=== PATIENT | female | born 1970 | race Caucasian/White ===

== ENCOUNTER 2021-06-13 11:15 | Outpatient (REF) | payer OTHER, SELFPAY ==
[2021-06-13 11:19] LABS: MANUAL DIFF FLAG NO
[2021-06-13 11:23] LABS: Basophils Percent Auto 0.6 % (0-2); Eosinophils Absolute Auto 0.2 X10*3/uL (0.0-0.4); Hematocrit 39.7 % (37-47); Hemoglobin 12.9 g/dl (12.0-16.0); Imm Gran Abs Auto 0.01 X10*3/uL (0.00-0.03); Imm Gran Pct Auto 0.2 % (0.0-0.4); Lymphocytes Absolute Auto 1.4 X10*3/uL (1.2-4.9); Lymphocytes Percent Auto 28.1 % (20-40); Mean Corpuscular HGB Conc 32.5 g/dl (31.0-35.0); Mean Corpuscular Hemoglobin 31.1 pg (27.0-33.0); Mean Corpuscular Volume 95.7 fL (80-98); Mean Platelet Volume 12.9 fL (9.4-12.3); Monocytes Absolute Auto 0.6 X10*3/uL (0.1-1.2); Monocytes Percent Auto 12.1 % (2-11); Neutrophils Absolute Auto 2.8 X10*3/uL (2.0-8.3); Platelet Count 231 X10*3/uL (160-400); Red Blood Count 4.15 X10*6/uL (4.20-5.50); Red Cell Distribution Width 13.2 % (11.0-16.0); White Blood Count 5.1 X10*3/uL (4.8-10.8)
[2021-06-13 11:46] LABS: Alanine Aminotransferase 10 U/L (0-31); Albumin Level 4.2 g/dL (3.5-5.0); Alkaline Phosphatase 49 U/L (39-117); Anion Gap 14 (12-20); Aspartate Amino Transferase 14 U/L (5-31); Bilirubin Total 0.5 mg/dL (0.0-1.0); Blood Urea Nitrogen 12 mg/dL (9-16); Calcium 9.2 mg/dL (8.4-10.2); Carbon Dioxide 25 mmol/L (22-29); Chloride 103 mmol/L (96-108); Cholesterol 166 mg/dL; Estimated Glomerular Filt Rate > 60; Glucose Fasting 90 mg/dL (60-99); HDL Cholesterol 70 mg/dL; LDL Cholesterol Calculated 85 mg/dl; Potassium 4.1 mmol/L (3.3-5.1); Sodium 138 mmol/L (135-145); Total Protein 6.6 g/dL (6.5-8.0); Triglycerides 55 mg/dL
[2021-06-13 12:29] LABS: Glucose Urine UA NEG (NEG); Leukocyte Esterase Urine NEG (NEG); Nitrite Urine NEG (NEG); Specific Gravity - Urine 1.025 (1.005-1.025); Urine Blood NEG (NEG); Urine Ketones NEG (NEG); Urine Protein NEG (NEG-TRACE)
[2021-06-13 12:41] LABS: Appearance Urine HAZY; Color Urine YELLOW
== END 2021-06-13 11:16 | disposition home or self-care (01) ==
LOC: HO.LNP 11:15
PROVIDERS: Visit Provider Internal Medicine
DX: Z00.00 Encounter for general adult medical examination without abnormal findings (principal); D36.9 Benign neoplasm, unspecified site; N95.1 Menopausal and female climacteric states; M19.042 Primary osteoarthritis, left hand
CPT/HCPCS: 80053; 80061; 81003; 85025

== ENCOUNTER 2022-06-15 11:05 | Outpatient (REF) | payer OTHER, SELFPAY ==
[2022-06-15 11:08] LABS: MANUAL DIFF FLAG NO
[2022-06-15 11:43] LABS: Basophils Percent Auto 0.6 % (0-2); Eosinophils Absolute Auto 0.2 X10*3/uL (0.0-0.4); Eosinophils Percent Auto 3.3 % (0-4); Hematocrit 39.3 % (37.0-47.0); Imm Gran Abs Auto 0.01 X10*3/uL (0.00-0.03); Imm Gran Pct Auto 0.2 % (0.0-0.4); Lymphocytes Absolute Auto 1.4 X10*3/uL (1.2-4.9); Lymphocytes Percent Auto 28.2 % (20-40); Mean Corpuscular HGB Conc 33.1 g/dl (31.0-35.0); Mean Corpuscular Hemoglobin 30.6 pg (27.0-33.0); Mean Corpuscular Volume 92.5 fL (80.0-98.0); Mean Platelet Volume 12.8 fL (9.4-12.3); Monocytes Absolute Auto 0.6 X10*3/uL (0.1-1.2); Monocytes Percent Auto 12.9 % (2-11); Neutrophils Absolute Auto 2.7 x10*3/uL (2.0-8.3); Neutrophils Percent Auto 54.8 % (45-73); Platelet Count 229 X10*3/uL (160-400); Red Blood Count 4.25 X10*6/uL (4.20-5.50); White Blood Count 4.9 X10*3/uL (4.8-10.8)
[2022-06-15 11:44] LABS: Appearance Urine HAZY; Color Urine YELLOW; Glucose Urine UA NEG (NEG); Leukocyte Esterase Urine NEG (NEG); Nitrite Urine NEG (NEG); Urine Blood TRACE (NEG); Urine Ketones NEG (NEG); Urine Protein NEG (NEG-TRACE)
[2022-06-15 12:04] LABS: Squamous Epithelial Cell Urine 2+ /LPF
[2022-06-15 12:05] LABS: Bacteria Urine 2+ /LPF; WBC Urine 0-2 /HPF (0-4)
[2022-06-15 12:06] LABS: RBC Urine 0-2 /HPF (0)
[2022-06-15 12:17] LABS: Alanine Aminotransferase 10 U/L (0-31); Albumin Level 4.1 g/dL (3.5-5.0); Alkaline Phosphatase 55 U/L (39-117); Anion Gap 14 (12-20); Aspartate Amino Transferase 15 U/L (5-31); Bilirubin Total 0.6 mg/dL (0.0-1.0); Blood Urea Nitrogen 11 mg/dL (9-16); Carbon Dioxide 26 mmol/L (22-29); Chloride 104 mmol/L (96-108); Cholesterol 157 mg/dL; Estimated Glomerular Filt Rate > 60; Glucose Fasting 83 mg/dL (60-99); HDL Cholesterol 61 mg/dL; LDL Cholesterol Calculated 85 mg/dl; Potassium 3.9 mmol/L (3.3-5.1); Sodium 140 mmol/L (135-145); Total Protein 6.5 g/dL (6.5-8.0); Triglycerides 56 mg/dL
== END 2022-06-15 11:06 | disposition home or self-care (01) ==
LOC: HO.LNP 11:05
PROVIDERS: Visit Provider Internal Medicine
DX: Z00.00 Encounter for general adult medical examination without abnormal findings (principal)
CPT/HCPCS: 80053; 80061; 81001; 85025

== ENCOUNTER 2023-06-21 10:58 | Outpatient (REF) | payer OTHER, SELFPAY ==
[2023-06-21 11:02] LABS: MANUAL DIFF FLAG NO
[2023-06-21 11:35] LABS: Appearance Urine Clear; Color Urine Yellow; Glucose Urine UA Negative (Negative); Leukocyte Esterase Urine Small (1+) (Negative); Nitrite Urine Negative (Negative); UMIC TRIGGER UACC YES; Urine Blood Negative (Negative); Urine Ketones Negative (Negative); Urine Protein Negative (Neg-Trace)
[2023-06-21 11:37] LABS: Bacteria Urine Trace (None Seen); Basophils Percent Auto 0.5 % (0-2); Eosinophils Absolute Auto 0.1 X10*3/uL (0.0-0.4); Eosinophils Percent Auto 3.6 % (0-4); Hematocrit 38.7 % (37.0-47.0); Hemoglobin 12.6 g/dl (12.0-16.0); Hyaline Casts Urine 0-2 /LPF (0-2); Lymphocytes Absolute Auto 1.4 X10*3/uL (1.2-4.9); Mean Corpuscular HGB Conc 32.6 g/dl (31.0-35.0); Mean Corpuscular Hemoglobin 29.6 pg (27.0-33.0); Mean Corpuscular Volume 90.8 fL (80.0-98.0); Mean Platelet Volume 12.5 fL (9.4-12.3); Monocytes Absolute Auto 0.5 X10*3/uL (0.1-1.2); Neutrophils Absolute Auto 1.9 x10*3/uL (2.0-8.3); Neutrophils Percent Auto 48.9 % (45-73); Platelet Count 200 X10*3/uL (160-400); RBC Urine 0-2 /HPF (0-2); Red Blood Count 4.26 X10*6/uL (4.20-5.50); UACC Culture Trigger YES; White Blood Count 3.9 X10*3/uL (4.8-10.8)
[2023-06-21 11:56] LABS: Alanine Aminotransferase 10 U/L (0-31); Alkaline Phosphatase 49 U/L (39-117); Anion Gap 11 (12-20); Aspartate Amino Transferase 15 U/L (5-31); Bilirubin Total 0.7 mg/dL (0.0-1.0); Blood Urea Nitrogen 10 mg/dL (9-16); Calcium 9.2 mg/dL (8.4-10.2); Carbon Dioxide 26 mmol/L (22-29); Chloride 108 mmol/L (96-108); Cholesterol 152 mg/dL; Estimated Glomerular Filt Rate > 60; Glucose Fasting 83 mg/dL (60-99); HDL Cholesterol 66 mg/dL; LDL Cholesterol Calculated 77 mg/dl; Sodium 141 mmol/L (135-145); Total Protein 6.4 g/dL (6.5-8.0); Triglycerides 48 mg/dL
== END 2023-06-21 10:59 | disposition home or self-care (01) ==
LOC: HO.LNP 10:58
PROVIDERS: Visit Provider Internal Medicine
DX: Z00.00 Encounter for general adult medical examination without abnormal findings (principal); D72.819 Decreased white blood cell count, unspecified; R82.998 Other abnormal findings in urine
CPT/HCPCS: 80053; 80061; 81001; 85025; 87086

== ENCOUNTER 2023-11-01 13:24 | Outpatient (REF) | payer OTHER, SELFPAY ==
[2023-11-01 13:39] LABS: Appearance Urine Cloudy; Color Urine Yellow; Glucose Urine UA Negative (Negative); Leukocyte Esterase Urine Large (3+) (Negative); Nitrite Urine Negative (Negative); PH 6.5 (5.0-9.0); Specific Gravity - Urine <= 1.005 (1.005-1.025); UMIC TRIGGER UA YES; Urine Blood Large (3+) (Negative); Urine Ketones Negative (Negative); Urine Protein Negative (Neg-Trace)
[2023-11-01 13:56] LABS: Bacteria Urine None Seen (None Seen); Hyaline Casts Urine 0-2 /LPF (0-2); Squamous Epithelial Cell Urine 0-2 /HPF (0-2); WBC Urine >50 /HPF (0-5)
== END 2023-11-01 13:25 | disposition home or self-care (01) ==
LOC: HO.LNP 13:24
PROVIDERS: Visit Provider Internal Medicine
DX: N39.0 Urinary tract infection, site not specified (principal)
CPT/HCPCS: 81001; 87086

== ENCOUNTER 2023-11-22 11:12 | Outpatient (REF) | payer OTHER, SELFPAY ==
[2023-11-22 11:24] LABS: Appearance Urine Hazy; Color Urine Yellow; Glucose Urine UA Negative (Negative); Leukocyte Esterase Urine Negative (Negative); Nitrite Urine Negative (Negative); Urine Blood Negative (Negative); Urine Ketones Negative (Negative); Urine Protein Negative (Neg-Trace)
[2023-11-22 13:16] LABS: Bacteria Urine Trace (None Seen); RBC Urine 0-2 /HPF (0-2); WBC Urine 0-5 /HPF (0-5)
== END 2023-11-22 11:13 | disposition home or self-care (01) ==
LOC: HO.LNP 11:12
PROVIDERS: Visit Provider Internal Medicine
DX: N39.0 Urinary tract infection, site not specified (principal)
CPT/HCPCS: 81001; 87086

== ENCOUNTER 2024-04-25 10:49 | Outpatient (REF) | payer OTHER, SELFPAY ==
[2024-04-25 12:01] LABS: Appearance Urine Clear; Color Urine Yellow; Glucose Urine UA Negative (Negative); Leukocyte Esterase Urine Trace (Negative); Nitrite Urine Negative (Negative); UMIC TRIGGER UACC YES; Urine Blood Trace (Negative); Urine Ketones Negative (Negative); Urine Protein Negative (Neg-Trace)
[2024-04-25 12:13] LABS: Bacteria Urine None Seen (None Seen); Hyaline Casts Urine 0-2 /LPF (0-2); RBC Urine 0-2 /HPF (0-2); Squamous Epithelial Cell Urine 0-2 /HPF (0-2); UACC Culture Trigger YES
== END 2024-04-25 10:50 | disposition home or self-care (01) ==
LOC: HO.LNP 10:49
PROVIDERS: Visit Provider Internal Medicine
DX: N39.0 Urinary tract infection, site not specified (principal)
CPT/HCPCS: 81001; 87086

== ENCOUNTER 2024-05-06 12:09 | Outpatient (REF) | payer BC, SELFPAY ==
[2024-05-06 12:51] LABS: Appearance Urine Clear; Color Urine Yellow; Glucose Urine UA Negative (Negative); Urine Blood Negative (Negative)
[2024-05-06 12:52] LABS: Leukocyte Esterase Urine Negative (Negative); Nitrite Urine Negative (Negative); Urine Ketones Negative (Negative); Urine Protein Negative (Neg-Trace)
[2024-05-06 12:59] LABS: Bacteria Urine None Seen (None Seen); Hyaline Casts Urine 0-2 /LPF (0-2); RBC Urine 0-2 /HPF (0-2); Squamous Epithelial Cell Urine 0-2 /HPF (0-2); WBC Urine 0-5 /HPF (0-5)
== END 2024-05-06 12:10 | disposition home or self-care (01) ==
LOC: HO.LNP 12:09
PROVIDERS: Visit Provider Internal Medicine
DX: Z51.89 Encounter for other specified aftercare (principal)
CPT/HCPCS: 81001

== ENCOUNTER 2024-06-23 10:51 | Outpatient (REF) | payer BC, SELFPAY ==
[2024-06-23 10:55] LABS: MANUAL DIFF FLAG NO
[2024-06-23 11:06] LABS: Basophils Percent Auto 0.7 % (0-2); Eosinophils Absolute Auto 0.1 X10*3/uL (0.0-0.4); Eosinophils Percent Auto 2.9 % (0-4); Hematocrit 39.8 % (37.0-47.0); Hemoglobin 13.2 g/dl (12.0-16.0); Imm Gran Abs Auto 0.01 X10*3/uL (0.00-0.03); Imm Gran Pct Auto 0.2 % (0.0-0.4); Lymphocytes Absolute Auto 1.8 X10*3/uL (1.2-4.9); Lymphocytes Percent Auto 38.8 % (20-40); Mean Corpuscular HGB Conc 33.2 g/dl (31.0-35.0); Mean Corpuscular Hemoglobin 30.6 pg (27.0-33.0); Mean Corpuscular Volume 92.3 fL (80.0-98.0); Mean Platelet Volume 12.4 fL (9.4-12.3); Monocytes Absolute Auto 0.5 X10*3/uL (0.1-1.2); Monocytes Percent Auto 11.2 % (2-11); Neutrophils Absolute Auto 2.1 x10*3/uL (2.0-8.3); Neutrophils Percent Auto 46.2 % (45-73); Platelet Count 233 X10*3/uL (160-400); Red Blood Count 4.31 X10*6/uL (4.20-5.50); Red Cell Distribution Width 13.5 % (11.0-16.0); White Blood Count 4.5 X10*3/uL (4.8-10.8)
[2024-06-23 11:29] LABS: Appearance Urine Cloudy; Color Urine Yellow; Glucose Urine UA Negative (Negative); Leukocyte Esterase Urine Small (1+) (Negative); Nitrite Urine Negative (Negative); PH 5.5 (5.0-9.0); Specific Gravity - Urine 1.025 (1.005-1.025); UMIC TRIGGER UACC YES; Urine Blood Negative (Negative); Urine Ketones Trace mg/dL (Negative); Urine Protein Negative (Neg-Trace)
[2024-06-23 11:35] LABS: Alanine Aminotransferase 13 U/L (0-31); Albumin Level 4.1 g/dL (3.5-5.0); Alkaline Phosphatase 51 U/L (39-117); Anion Gap 10 (12-20); Aspartate Amino Transferase 18 U/L (5-31); Bilirubin Total 0.7 mg/dL (0.0-1.0); Blood Urea Nitrogen 14 mg/dL (9-16); Calcium 9.4 mg/dL (8.4-10.2); Carbon Dioxide 28 mmol/L (22-29); Chloride 107 mmol/L (96-108); Cholesterol 163 mg/dL (<200); Estimated Glomerular Filt Rate > 60; Glucose Fasting 92 mg/dL (60-99); HDL Cholesterol 71 mg/dL (>40); LDL Cholesterol Calculated 81 mg/dL (<100); Potassium 3.7 mmol/L (3.3-5.1); Sodium 141 mmol/L (135-145); Total Protein 6.6 g/dL (6.5-8.0); Triglycerides 56 mg/dL (<150)
[2024-06-23 11:49] LABS: Bacteria Urine 3+ (None Seen); RBC Urine 0-2 /HPF (0-2); UACC Culture Trigger YES
== END 2024-06-23 10:52 | disposition home or self-care (01) ==
LOC: HO.LNP 10:51
PROVIDERS: Visit Provider Internal Medicine
DX: Z00.00 Encounter for general adult medical examination without abnormal findings (principal); R82.79 Other abnormal findings on microbiological examination of urine
CPT/HCPCS: 80053; 80061; 81001; 85025; 87086

== ENCOUNTER 2024-07-18 09:45 | Day surgery (SDC) | payer BC, SELFPAY ==
[2024-07-16 14:22] VITALS: BMI 17.9
[2024-07-18] MEDS: Lactated Ringers 1,000 ML 100 ML IVCONT (10:07)
[2024-07-18 10:21] VITALS: BP 132/85; PULSE 65; RESP 18; TEMP 36.6; O2SAT 100
--- NOTE | 2024-07-18 10:25 | P.CONAN_ITS ---
Documented by User: Katie Hendricks NP 07/17/24 09:13 HPI - Anesthesia Eval Consult details Narrative: 54yo F for Colonoscopy [facility] Past Medical History Medical History (Updated 07/18/24 @ 09:49 by Franchesca Patton RN) History of menopause HSV (herpes simplex virus) infection Surgical History Surgical History Hx of appendectomy H/O colonoscopy Social History Social History (Updated 07/16/24 @ 14:23 by Shu Martinez RN) Household Members: Spouse Are you a primary assistant child care teacher to a significant other at home: No Do you presently have visiting nurse or other home services: No Patient Tobacco Use Status: Never used Tobacco Have you been hit, kicked, punched, or otherwise hurt by someone within the past year? If so, by whom?: No Are you DNR?: No Advance Directives: No Advance Directives Information Provided: Yes Recently lost weight without trying: No Nutrition Risks: No Nutritional Risk Meds Allergies Allergy/AdvReac Type Severity Reaction Status Date / Time cephalexin [From KEFLEX] Allergy Intermediate RASH Verified 07/18/24 10:21 Home Medications ?Medication ?Instructions ?Recorded ?Confirmed ?Last Taken ?Type valacyclovir 500 mg tablet 500 mg PO DAILY PRN HSV outbreak 07/16/24 07/16/24 Unknown History (Valtrex) Exam Height,Weight and Vital Signs: Height 5 ft 8 in Weight 53.297 kg Assessment and Plan Assessment Anesthesia Assessment: Chart Reviewed Documented by User: Hetal Strickland DO 07/18/24 10:31 [facility] Past Medical History Medical History (Updated 07/18/24 @ 09:49 by Franchesca Patton RN) History of menopause HSV (herpes simplex virus) infection Family History Family history of problems with anesthesia: No Surgical History Surgical History Hx of appendectomy H/O colonoscopy History of Problems with Anesthesia: No Social History Social History (Updated 07/16/24 @ 14:23 by Shu Martinez RN) Household Members: Spouse Are you a primary assistant child care teacher to a significant other at home: No Do you presently have visiting nurse or other home services: No Patient Tobacco Use Status: Never used Tobacco Have you been hit, kicked, punched, or otherwise hurt by someone within the past year? If so, by whom?: No Are you DNR?: No Advance Directives: No Advance Directives Information Provided: Yes Recently lost weight without trying: No Nutrition Risks: No Nutritional Risk Meds Allergies Allergy/AdvReac Type Severity Reaction Status Date / Time cephalexin [From KEFLEX] Allergy Intermediate RASH Verified 07/18/24 10:21 Home Medications ?Medication ?Instructions ?Recorded ?Confirmed ?Last Taken ?Type valacyclovir 500 mg tablet 500 mg PO DAILY PRN HSV outbreak 07/16/24 07/16/24 Unknown History (Valtrex) Exam Exam Date and Time: 07/18/24 1027 Height,Weight and Vital Signs: Height 5 ft 8 in Weight 53.297 kg Height 5 ft 8 in Weight 53.297 kg Vital Signs Temperature 97.9 F 07/18/24 10:21 Pulse Rate 65 07/18/24 10:21 Respiratory Rate 18 07/18/24 10:21 Blood Pressure 132/85 07/18/24 10:21 Pulse Oximetry 100 07/18/24 10:21 Oxygen Delivery Method Room Air 07/18/24 10:21 Temperature 97.9 F 07/18/24 10:21 Pulse Rate 65 07/18/24 10:21 Respiratory Rate 18 07/18/24 10:21 Blood Pressure 132/85 07/18/24 10:21 Pulse Oximetry 100 07/18/24 10:21 Oxygen Delivery Method Room Air 07/18/24 10:21 Airway Mallampati Class: I TM Dist: >3cm Neck ROM: Full Loose/Missing/Broken Teeth: No (patient denies any loose or broken teeth) Heart: S1S2 Lungs: CTAB Assessment and Plan Assessment Anesthesia Assessment: Anesthesia Plan Discussed and Chart Reviewed Final Anesthetic Review Family History of Problems with Anesthesia: No History of Problems with Anesthesia: No NPO: Yes ASA Class: I Final Preanesthetic Review: No Changes in Pt Med Stat, Meds/Allgs Chart Reviewed, Consent Obtained/Reviewed and Anes Risks/Benef Reviewed Patient Risk: Low Procedure Risk: Low Anesthetic Plan Anesthetic Plan: MAC: and Agree w/ Assess. and Plan Disposition: Standard PACU
--- NOTE | 2024-07-18 10:40 | MHC.SHP ---
Pre-Procedural Eval Section A - 24 Hr Update-Section A only Date of Service: 07/18/24 Section B - Complete if H&P > 30 days Chief Complaint: screening Details of Present Illness: see H&P no changes Relevant Family History (Specify if Yes): No Relevant Social History: None Present Medications: see Short Stay Collaborative assessment Medical History: No relevant PMH History of Previous Operations: No relevant previous surgery Allergies: Allergies Allergy/AdvReac Type Severity Reaction Status Date / Time cephalexin [From KEFLEX] Allergy Intermediate RASH Verified 07/18/24 10:21 Review of Systems Sugical H&P ROS: Negative: Constitution, Cardiovascular, Respiratory, Neurological, Psychiatric, Hem-Onc, Allergic/Immunologic, Gastrointestinal, Genitourinary, Musculoskeletal, Integumentary, Endocrine and Eyes/Ears/Nose/Throat Exam Surgical H&P Exam: Normal: HEENT, Normal: Heart, Normal: Lungs, Normal: Extremities, Normal: Abdomen, Normal: Skin and Normal: Neurological Plan Diagnosis/Plan: Unchanged I have reviewed the history and physical and performed a pertinent physical examination on my patient. No changes have occurred unless specified. Time Spent With Patient Time: Total time managing care of this patient today ____ minutes.
[2024-07-18 11:22] VITALS: BP 98/66; PULSE 74; RESP 16; TEMP 36.3; O2SAT 97
[2024-07-18 11:38] VITALS: BP 127/83; PULSE 61; RESP 17; TEMP 36.3; O2SAT 100
--- NOTE | 2024-07-18 12:34 | OP_ITS ---
DATE OF SERVICE: 07/18/2024 SURGEON: Da Acevedo MD INDICATIONS: Colon cancer screening and family history of colon cancer. PREOPERATIVE DIAGNOSIS: POSTOPERATIVE DIAGNOSIS: PROCEDURE PERFORMED: Colonoscopy to the terminal ileum. ESTIMATED BLOOD LOSS: COMPLICATIONS: ANESTHESIA: Monitored anesthesia care. ASSISTANTS: SPECIMENS: DESCRIPTION OF PROCEDURE: A history and physical was performed. The risks and benefits of the procedure were explained to the patient and informed consent was obtained. The patient was placed in the left lateral decubitus position. A digital rectal exam was performed and was found to be normal. The Olympus video colonoscope was introduced into the rectum and advanced to the cecum. The cecum was identified by transillumination, palpation, and identification of ileocecal valve. Examination was performed and the scope was removed. She tolerated the procedure well and was returned to recovery area in stable condition. FINDINGS: The terminal ileum was examined and appeared normal. The visualized colonic mucosa was normal. The quality of the prep was good. No polyps were identified. Retroflexed examination was normal. IMPRESSION: Normal colonoscopy. RECOMMENDATIONS: 1. Follow up as needed. 2. Repeat colonoscopy is recommended in 5 years for family history. MD DELISA Zimmerman/ISABELA / [phone]
== END 2024-07-18 12:10 | disposition home or self-care (01) ==
PROVIDERS: PCP Internal Medicine; Visit Provider Internal Medicine Gastroenterology
PROC: 0DJD8ZZ Inspection of Lower Intestinal Tract, Via Natural or Artificial Opening Endoscopic (ICD-10-PCS; CPT 45378; principal; 2024-07-18 11:40)
DX: Z12.11 Encounter for screening for malignant neoplasm of colon (principal); Z86.010 Personal history of colon polyps; Z80.0 Family history of malignant neoplasm of digestive organs; Z79.899 Other long term (current) drug therapy
CPT/HCPCS: 45378; J2704

== ENCOUNTER 2025-03-05 10:07 | Outpatient (RCR) | payer BC, SELFPAY | END 2025-05-04 08:34 | disposition home or self-care (01) | LOC: HO.PT 10:07 | PROVIDERS: PCP Internal Medicine; Visit Provider Nurse Practitioner | DX: M54.2 Cervicalgia (principal); M77.8 Other enthesopathies, not elsewhere classified | CPT/HCPCS: 97110; 97140; 97161; 97530; 97535 ==

== ENCOUNTER 2025-07-10 07:45 | Outpatient (REF) | payer BC, SELFPAY ==
--- OUTSIDE RECORDS SUMMARY | 2024-05-29 05:02 | XMS_ITS ---
Author Organization Ben Ramires MD Address [address] [place] [phone] Care Team Providers Care Seafood Packer Name Role Phone Ben Ramires Primary Care Provider REASON FOR VISIT referral Dr. Acevedo Encounters Encounter Location Date Provider Diagnosis Ben Ramires MD [address] [place] [phone] 05/29/2024 Ben Ramires Plan Of Treatment Next Appt Details Provider Name:Ben Resendiz ier, 07/16/2025 01:00:00 PM, [address] [facility], [address] [place] [address], [phone], Progress Notes * Amelie ROJASB:1970 ([age] yo F)Acc No.[id number]:05/29/2024 Patient: Buffy Dolan :1970 A ge:54 Y S ex:Female Address:[address] [place] [address] [place] [phone] * true * Date: Generated for Printi ng/Faxing/eTransmitting on: 0 07/10/2025 12:32 PM EDT
--- OUTSIDE RECORDS SUMMARY | 2024-06-23 03:15 | XMS_ITS ---
Author Organization Ben Ramires MD Address [address] [place], [place] [phone] Care Team Providers Care Services Manager Name Role Phone Ben Ramires Primary Care Provider [phone] Results Component Value Reference Range Notes Complete Blood Count Auto Di ff Reviewed date:06/23/2024 12:55:20 PM Interpretation: Performing Lab:[facility], [address] [place] [id number] Notes/Report: White Blood Count 4.5 4.8-10.8 X10*3/uL Red Blood Count 4.31 4.20-5.50 X10*6/uL Hemoglobin 13.2 12.0-16.0 g/dl Hematocrit 39.8 37.0-47.0 % Mean Corpuscular Volume 92.3 80.0-98.0 fL Mean Corpuscular Hemoglobin 30.6 27.0-33.0 pg Mean Corpuscular HGB Conc 33.2 31.0-35.0 g/dl Red Cell Distribution Width 13.5 11.0-16.0 % Platelet Count 233 160-400 X10*3/uL Mean Platelet Volume 12.4 9.4-12.3 fL Neutrophils Percent Auto 46.2 45-73 % Imm Gran Pct Auto 0.2 0.0-0.4 % Lymphocytes Percent Auto 38.8 20-40 % Monocytes Percent Auto 11.2 2-11 % Eosinophils Percent Auto 2.9 0-4 % Basophils Percent Auto 0.7 0-2 % NRBC Pct Auto 0.0 0.0-0.2 /100WBC Neutrophils Absolute Auto 2.1 2.0-8.3 x10*3/u L Imm Gran Abs Auto 0.01 0.00-0.03 X10*3/uL Lymphocytes Absolute Auto 1.8 1.2-4.9 X10*3/u L Monocytes Absolute Auto 0.5 0.1-1.2 X10*3/uL Eosinophils Absolute Auto 0.1 0.0-0.4 X10*3/u L Basophils Absolute Auto 0.0 0.0-0.2 X10*3/uL NRBC Abs Auto 0.000 0.0-0.012 X10*3/uL Comprehensive [place]. Panel Fa Reviewed date:06/23/2024 12:56:05 PM Interpretation: Performing Lab:[address] [id number] Notes/Report: Sodium 141 135-145 mmol/L Potassium 3.7 3.3-5.1 mmol/L Chloride 107 96-108 mmol/L Carbon Dioxide 28 22-29 mmol/L Anion Gap 10 12-20 Blood Urea Nitrogen 14 9-16 mg/dL Creatinine 0.84 0.5-1.4 mg/dL Estimated Glomerular Filt Rate > 60 NOTE: For -Mosotho individuals, multiply the result by 1.210. Chronic Kidney Disease: Estimated GFR < 60 mL/min/1.73m2 Severe Kidney Disease: Estimated GFR < 15 mL/min/1.73m2 Glucose Fasting 92 60-99 mg/dL Calcium 9.4 8.4-10.2 mg/dL Bilirubin Total 0.7 0.0-1.0 mg/dL Aspartate Amino Transferase 18 5-31 U/L Alanine Aminotransferase 13 0-31 U/L Total Protein 6.6 6.5-8.0 g/dL Albumin Level 4.1 3.5-5.0 g/dL Alkaline Phosphatase 51 39-117 U/L Lipid Panel Reviewed date:06/23/2024 12:40:43 PM Interpretation: Performing Lab:[address] [id number] Notes/Report: Triglycerides 56 <150 mg/dL Desirable Triglyceride: less than 150 mg/dL Borderline High Triglyceride 150-199 mg/dL High Triglyceride: 200-499 mg/dL Very High Triglyceride: greater than or equal to 5OO mg/dL Cholesterol 163 <200 mg/dL Desirable Cholesterol: less than 200 mg/dL Borderline High Cholesterol: 200-239 mg/dL High Cholesterol: greater than 239 mg/dL LDL Cholesterol Calculated 81 <100 mg/dL Desirable LDL: less than 100 mg/dL Near Optimal/Above Optimal LDL: 110-129 mg/dL Borderline High LDL: 130-159 mg/dL High LDL: 160-189 mg/dL Very High LDL: greater than or equal to 190 mg/dL HDL Cholesterol 71 >40 mg/dL Desirable HDL: greater than 40 mg/dL Note: This HDL assay may give artificially low results in patients with liver disease. UA ClnCatch+Micro w/rflx Cul t Reviewed date:06/23/2024 12:41:00 PM Interpretation: Performing Lab:[facility], [address] [place] [phone] Notes/Report: Urine, Clean Catch Color Urine Yellow Appearance Urine Cloudy PH 5.5 5.0-9.0 Glucose Urine UA Negative Negative mg/dL Urine Blood Negative Negative Specific [place] - Urine 1.025 1.005-1.025 Urine Protein Negative Neg-Trace mg/dL Urine Ketones Trace Negative mg/dL Nitrite Urine Negative Negative Leukocyte Esterase Urine Small (1+) Negative RBC Urine 0-2 0-2 /HPF WBC Urine 6-10 0-5 /HPF Squamous Epithelial Cell Urine 11-20 0-2 /HPF Bacteria Urine 3+ None Seen Hyaline Casts Urine 6-10 0-2 /LPF REASON FOR VISIT FASTING LABS Encounters Encounter Location Date Provider Diagnosis Ben Ramires MD [address] [place] [phone] 06/23/2024 Ben Ramires Blood tests for routine general physical examination Z00.00 Assessments Encounter Date Diagnosis (ICD Code) Assessment Notes Treatment Notes Treatment Clinical Notes Section Notes 06/23/2024 Blood tests for routine general physical examination (ICD-10 - Z00.00) Plan Of Treatment Next Appt Details Provider Name:Ben zacarias, 07/16/2025 01:00:00 PM, [address], [address], [place], [place], [phone], Progress Notes * Louis ROJASaDOB:1970 ([age] yo F)Acc No.[id number]:06/23/2024 Progress Note Patient: Buffy MARIA Provider: Ximena Ramires MD :1970 A ge:54 Y S ex:Female Date:06/23/2024 Address:[address] [place], [place] [phone] Subjective: * Chief Complaints: * 1 . FASTING LABS. * Medical History: Objective: * Vitals: Assessment: * Assessment: 1. B lood tests for routine general physical examination - Z00.00 (Primary) Plan: * Treatment: * Procedure Codes: 3 6415 VENIPUNCT, ROUTINE* * * The named appointment provid er may or may not be the originator of this progress note, and it is not deemed complete until electronically signed by the appointment provider. Sign off status: Pending * Provider: Ximena Ramires MD Date: 0 06/23/2024 Generated for Isabelle hutchins/Mary/Dalilasmitting on: 0 07/10/2025 12:32 PM EDT
--- OUTSIDE RECORDS SUMMARY | 2024-07-03 04:00 | XMS_ITS ---
Author Organization Ben Ramires MD Address [address] [place], [place] [phone] Care Team Providers Care Mat Roller Name Role Phone Ben Ramires Primary Care Provider Allergies Allergen (clinical drug ingredient) Drug/Non Drug Allergy documented on EMR Reaction Allergy Type Onset Date Status Keflex rash Drug Allergy Active REASON FOR VISIT ANNUAL EXAM Medications Medication SIG (Take, Route, Fr equency, Duration) Notes Start Date End Date Status Valtrex 500 MG 1 tablet Orally Once a day for 10 day(s) Not-Taking Social History Tobacco Use: Social History Observation Description Date Details (start date - stop date) Never Smoker NA - NA Tobacco Use/Smoking Question Answer Notes Patient is a nonsmoker Additional Findings: Tobacco Non-User Cu rrent non-smoker, currently using no form of tobacco Alcohol Screen Question Answer Notes Did you have a drink contain ing alcohol in the past year? Yes How often did you have a dri nk containing alcohol in the past year? 2 to 4 times a month (2 points) How many drinks did you have on a typical day when you were drinking in the past year? 1 or 2 drinks (0 point) How often did you have 6 or more drinks on one occasion in the past year? Never (0 point) Points 2 Interpretation Negative Vital Signs Blood pressure systolic 92 mm Hg 07/03/20 24 Blood pressure diastolic 60 mm Hg 024 Height 68 in 07/03/2024 Weight 119 lbs 07/03/2024 BMI 18.09 kg/m2 07/03/2024 Encounters Encounter Location Date Provider Diagnosis Ben Ramires MD [address] [place], [place] [phone] 07/03/2024 Ben Ramires Annual physical exam Z00.00 and Dysfunction of right rotator cuff M67.911 Assessments Encounter Date Diagnosis (ICD Code) Assessment Notes Treatment Notes Treatment Clinical Notes Section Notes 07/03/2024 Annual physical exam (ICD-10 - Z00.00) encouraged her to continiue her healthy lifestyle 07/03/2024 Dysfunction of right rotator cuff (ICD-10 - M67.911) i have explained the cause of the dysfunction and have shown her the exercises to help alleviate this problem Plan Of Treatment Treatment Notes Assessment Notes Annual physical exam encouraged her to c ontiniue her healthy lifestyle Dysfunction of right rotator cuff i have explained the cause of the dysfunction and have shown her the exercises to help alleviate this problem Next Appt Details Provider Name:Ben Resendiz ier, 07/16/2025 01:00:00 PM, [address], [address], [place], [place], [phone], Progress Notes * Louis ROJASaDOB:1970 ([age] yo F)Acc No.[id number]:07/03/2024 Progress Notes Patient: Buffy Dolan Provider: Ximena Ramires MD :1970 A ge:54 Y S ex:Female Date:07/03/2024 Address:[address] [place], [place] [phone] Subjective: * Chief Complaints: * A NNUAL EXAM * HPI: D epression Screening: PHQ-9 L ittle interest or pleasure in doing things N ot at all, F eeling down, depressed, or hopeless N ot at all, T rouble falling or staying asleep, or sleeping too much N ot at all, F eeling tired or having little energy N ot at all, P oor appetite or overeating N ot at all, F eeling bad about yourself or that you are a failure, or have let yourself or your family down N ot at all, T rouble concentrating on things, such as reading the newspaper or watching television N ot at all, M oving or speaking so slowly that other people could have noticed; or the opposite, being so fidgety or restless that you have been moving around a lot more than usual N ot at all, T houghts that you would be better off or of hurting yourself in some way N ot at all, T otal Score 0 . I nterpretation and Intervention D epression Screening Findings N egative, F ollow-Up for Depression : review of PHQ-9 found negative result, no follow-up needed. C ommunication Needs: Communication Needs D oes the patient have a hearing impairment N o, D oes the patient have a vision impairment? Y es, I f yes, what is the vision impairment? C ontact Lenses, D oes the patient have a cognition impairment? N o. S JUAN [place]ANCIS[place] Questions: SDOH Questions I n the past year have you been worried about losing housing? N o, I n the past year have you or any family members you live with been unable to get any of the following when it was really needed? Check all that apply: N one. S ymptom(s): patient is a 54 yo female here for annual visit with review of recent labs and follow up of chronic issues. * ROS: G eneral/Constitutional: Change in appetite d enies. C hills d enies. F ever d enies. O phthalmologic: Blurred vision d enies. D ischarge d enies. P ain d enies. E NT: Decreased hearing d enies. S ore throat d enies.?Swollen glands d enies. E ndocrine: Cold intolerance d enies. E xcessive thirst d enies. H eat intolerance d enies. W eight loss d enies. R espiratory: Cough d enies. S hortness of breath at rest d enies. S hortness of breath with exertion d enies. W heezing d enies. C ardiovascular: Chest pain at rest d enies. C hest pain with exertion?denies. I rregular heartbeat d enies. S hortness of breath d enies. ? G astrointestinal: Abdominal pain d enies. C hange in bowel habits d enies. D iarrhea d enies. N ausea d enies. R ectal bleeding d enies. V omiting d enies . G enitourinary: Blood in urine d enies. D ifficulty urinating d enies. F requent urination d enies. U rinary incontinence D enies. M usculoskeletal: Patient complaining of s houlder is bothers. P ainful joints d enies. W eakness d enies. S kin: Dry skin d enies. I tching d enies. D enies?Mole(s), changes in moles, new moles or any lesions of concern. D enies P hotosensitivity. R chio d enies. N eurologic: Dizziness d enies. F ainting d enies. H eadache?denies. * Medical History: * Surgical History: * Hospitalization/Major Diagno stic Procedure: * Family History: F ather: alive 79 yrs, colon cancer, diagnosed with Hypertension, Cancer. M other: alive 76 yrs, diagnosed with Hypertension. 1 brother(s) . 1 son(s) . . Father colon, Denies mental health/substance abuse family history, Denies mental health/substance abuse family history, Denies mental health/substance abuse family history, Denies mental health/substance abuse family history, Denies mental health/substance abuse family history. * Social History: T obacco Use: T obacco Use/Smoking P atient is a n onsmoker, A dditional Findings: Tobacco Non-User C urrent non-smoker, currently using no form of tobacco. D rugs/Alcohol: A lcohol Screen D id you have a drink containing alcohol in the past year? Y es, H ow often did you have a drink containing alcohol in the past year? 2 to 4 times a month (2 points), H ow many drinks did you have on a typical day when you were drinking in the past year? 1 or 2 drinks (0 point), H ow often did you have 6 or more drinks on one occasion in the past year? N ever (0 point), P oints 2 , I nterpretation N egative. M iscellaneous: n o Caffeine, no. Children: yes, yes. Community involvements: yes, yes. Exercise: yes, daily with teaching dance and yoga. Home smoke detector use: yes. Living with: spouse, family. Marital status: . Occupation: works full-time. Pets: cat x1. Travel outside of the [place]: yes. * Medications: N ot-Taking/PRNValtrex 500 MG Tablet 1 tablet Orally Once a dayMedication List reviewed and reconciled with the patientNot-Taking/PRN Valtrex 500 MG Tablet 1 tablet Orally Once a dayMedication List reviewed and reconciled with the patient * Allergies: K eflex: rashyes[Allergies Verified] Objective: * Vitals: H t: 68, Wt:119, BMI:18.09, BP:92/60. * P ast Orders: L ab:Lipid Panel (Order Date - 06/23/2024) (Collection Date - 06/23/2024) Value Reference Range Triglycerides 56 <150 - mg/dL Cholesterol 163 <200 - mg/dL LDL Cholesterol Calculated 81 <100 - mg/dL HDL Cholesterol 71 >40 - mg/dL L ab:UA ClnCatch+Micro w/rflx Cult (Order Date - 06/23/2024) (Collection Date - 06/23/2024) Value Reference Range Color Urine Yellow - Appearance Urine Cloudy - PH 5.5 5.0-9.0 - Glucose Urine UA Negative Negative - mg/dL Urine Blood Negative Negative - Specific [place] - Urine 1.025 1.005-1.025 - Urine Protein Negative Neg-Trace - mg/dL Urine Ketones Trace Negative - mg/dL Nitrite Urine Negative Negative - Leukocyte Esterase Urine Small (1+) A Negative - RBC Urine 0-2 0-2 - /HPF WBC Urine 6-10 A 0-5 - /HPF Squamous Epithelial Cell Urine 11-20 0-2 - /HPF Bacteria Urine 3+ None Seen - Hyaline Casts Urine 6-10 0-2 - /LPF L ab:Urine Culture (Order Date - 06/23/2024) (Collection Date - 06/23/2024) Value Reference Range Urine Culture 50,000 to 100,000 cfu/mL - O:LACSPP Lactobacillus species - L ab:Complete Blood Count Auto Diff (Order Date - 06/23/2024) (Collection Date - 06/23/2024) Value Reference Range White Blood Count 4.5 L 4.8-10.8 - X10*3/uL Red Blood Count 4.31 4.20-5.50 - X10*6/uL Hemoglobin 13.2 12.0-16.0 - g/dl Hematocrit 39.8 37.0-47.0 - % Mean Corpuscular Volume 92.3 80.0-98.0 - fL Mean Corpuscular Hemoglobin 30.6 27.0-33.0 - pg Mean Corpuscular HGB Conc 33.2 31.0-35.0 - g/ dl Red Cell Distribution Width 13.5 11.0-16.0 - % Platelet Count 233 160-400 - X10*3/uL Mean Platelet Volume 12.4 H 9.4-12.3 - fL Neutrophils Percent Auto 46.2 45-73 - % Imm Gran Pct Auto 0.2 0.0-0.4 - % Lymphocytes Percent Auto 38.8 20-40 - % Monocytes Percent Auto 11.2 H 2-11 - % Eosinophils Percent Auto 2.9 0-4 - % Basophils Percent Auto 0.7 0-2 - % NRBC Pct Auto 0.0 0.0-0.2 - /100WBC Neutrophils Absolute Auto 2.1 2.0-8.3 - x10* 3/uL Imm Gran Abs Auto 0.01 0.00-0.03 - X10*3/uL Lymphocytes Absolute Auto 1.8 1.2-4.9 - X10* 3/uL Monocytes Absolute Auto 0.5 0.1-1.2 - X10*3/ uL Eosinophils Absolute Auto 0.1 0.0-0.4 - X10* 3/uL Basophils Absolute Auto 0.0 0.0-0.2 - X10*3/ uL NRBC Abs Auto 0.000 0.0-0.012 - X10*3/uL L ab:Comprehensive [place]. Panel Fast (Order Date - 06/23/2024) (Collection Date - 06/23/2024) Value Reference Range Sodium 141 135-145 - mmol/L Bilirubin Total 0.7 0.0-1.0 - mg/dL Aspartate Amino Transferase 18 5-31 - U/L Alanine Aminotransferase 13 0-31 - U/L Total Protein 6.6 6.5-8.0 - g/dL Albumin Level 4.1 3.5-5.0 - g/dL Alkaline Phosphatase 51 39-117 - U/L Potassium 3.7 3.3-5.1 - mmol/L Chloride 107 96-108 - mmol/L Carbon Dioxide 28 22-29 - mmol/L Anion Gap 10 L 12-20 - Blood Urea Nitrogen 14 9-16 - mg/dL Creatinine 0.84 0.5-1.4 - mg/dL Estimated Glomerular Filt Rate > 60 - Glucose Fasting 92 60-99 - mg/dL Calcium 9.4 8.4-10.2 - mg/dL * Examination: G eneral Examination: GENERAL APPEARANCE: w ell developed, well nourished, in no acute distress. HEAD: n ormocephalic, atraumatic. EYES: p upils equal, round, reactive to light and accommodation, sclera non-icteric. EARS: n ormal. ORAL CAVITY: m ucosa moist. THROAT: c lear. NECK/THYROID: n edmund supple, full range of motion, no cervical lymphadenopathy, no bruits. SKIN: w arm and dry, no suspicious lesions. HEART: r egular rate and rhythm, S1, S2 normal, no murmurs.? LUNGS: c lear to auscultation bilaterally. BREASTS: N o mass, no lump. ABDOMEN: s oft, nontender, nondistended, bowel sounds present, normal, no organomegaly , no masses palpable. RECTAL EXAM: d one by ground water technician. FEMALE GENITOURINARY: d one by ground water technician. EXTREMITIES: n o clubbing, cyanosis, or edema. NEUROLOGIC: n onfocal, motor strength normal upper and lower extremities, sensory exam intact. Assessment: * Assessment: 1. A nnual physical exam - Z00.00 (Primary) 2 . D ysfunction of right rotator cuff - M67.911 Plan: * Treatment: 2. D ysfunction of right rotator cuff Notes: i have explained the cause of the dysfunction and have shown her the exercises to help alleviate this problem. * Procedure Codes: * Preventive Medicine: Counseling: C are goal follow-up plan: C ounseling for abnormal BMI provided?Yes, B elow Normal BMI Follow-up a dvised to increase dietary intake. * * Sign off status: Completed true * Provider: Ximena Ramires MD Date: 0 07/03/2024 Generated for Isabelle hutchins/Mary/Carlositting on: 0 07/10/2025 12:31 PM EDT History and Physical Notes * HPI (History of Present Illness) Category Sub-Category Detail Notes Category Not es Symptom(s) patient is a 54 yo female here for annual visit with review of recent labs and follow up of chronic issues. Depression Screening PHQ-9 Little inte rest or pleasure in doing things: Not at all Feeling down, depressed, or hopeless: No t at all Trouble falling or staying asleep, or sl eeping too much: Not at all Feeling tired or having little energy: N ot at all Poor appetite or overeating: Not at all Feeling bad about yourself o r that you are a failure, or have let yourself or your family down: Not at all Trouble concentrating on thi ngs, such as reading the newspaper or watching television: Not at all Moving or speaking so slowly that other people could have noticed; or the opposite, being so fidgety or restless that you have been moving around a lot more than usual: Not at all Thoughts that you would be b annette off or of hurting yourself in some way: Not at all Total Score: 0 Interpretation and Intervention Depression Jeff jensen Findings: Negative Follow-Up for Depression: : review of PH Q-9 found negative result, no follow-up needed SDOH Questions SDOH Questions In the past year have you been worried about losing housing?: No In the past year have you or any family members you live with been unable to get any of the following when it was really needed? Check all that apply:: None Communication Needs Communication Needs Does the patient have a hearing impairment: No Does the patient have a vision impairmen t?: Yes If yes, what is the vision impairment?: Contact Lenses Does the patient have a cognition impair ment?: No Examination Category Sub-Category Detail Notes Category Not es General Examination GENERAL APPEARANCE: well dev eloped, well nourished, in no acute distress HEAD: normocephalic, atrau matic EYES: pupils equal, round, reactive to light and accommodation, sclera non-icteric EARS: normal THROAT: clear NECK/THYROID: neck supple, full ra nge of motion, no cervical lymphadenopathy, no bruits HEART: regular rate and rhy thm, S1, S2 normal, no murmurs LUNGS: clear to auscultatio n bilaterally ABDOMEN: soft, nontender, non distended, bowel sounds present, normal, no organomegaly , no masses palpable NEUROLOGIC: nonfocal, motor stre ngth normal upper and lower extremities, sensory exam intact SKIN: warm and dry, no alison picious lesions EXTREMITIES: no clubbing, cyanosi s, or edema BREASTS: No mass, no lump RECTAL EXAM: done by ground water technician FEMALE GENITOURINARY: done by ground water technician ORAL CAVITY: mucosa moist
--- OUTSIDE RECORDS SUMMARY | 2024-07-18 07:40 | XMS_ITS ---
Author Organization [facility] Address [address] [place] [phone] Care Team Providers Care Refining Engineer Name Role Phone Ben Ramires MD Primary Care Provider Da Luke Jr REASON FOR VISIT screening Encounters Encounter Location Date Provider Diagnosis [facility] [address] [place] [phone] 07/18/2024 Da Acevedo Jr Colon cancer screening Z12.11 and Family history of colon cancer Z80.0 Assessments Encounter Date Diagnosis (ICD Code) Assessment Notes Treatment Notes Treatment Clinical Notes Section Notes 07/18/2024 Colon cancer screening (ICD-10 - Z12.11) 07/18/2024 Family history of colon cancer (ICD-10 - Z80.0) Plan Of Treatment No Information Progress Notes * CASSIE MOTLEY DDOB:1970 (55 yo F)Acc No.[id number]:07/18/2024 COLON WITH MAC Patient: Faith CASSIE CORBIN Provider: Nava Acevedo MD :1970 A ge:54 Y S ex:Female Date:07/18/2024 Address:[address] [place], [place] [phone] Pcp:Ben Ramires MD Subjective: * Chief Complaints: * 1 . Screening. * Medical History: Objective: * Vitals: Assessment: * Assessment: 1. C olon cancer screening - Z12.11 (Primary) 2 . F amily history of colon cancer - Z80.0 Plan: * Treatment: * Procedure Codes: 4 5378 DIAGNOSTIC COLONOSCOPY * * The named appointment provid er may or may not be the originator of this progress note, and it is not deemed complete until electronically signed by the appointment provider. Sign off status: Pending * Provider: Nava Acevedo MD Date: 0 07/18/2024 Generated for Isabelle hutchins/Mary/Carlositting on: 0 07/10/2025 12:31 PM EDT
--- OUTSIDE RECORDS SUMMARY | 2024-07-24 04:00 | XMS_ITS ---
Author Organization Ben Ramires MD Address [address] [facility] [address] [place] [phone] Care Team Providers Care Tobacco Prevention Health Educator Name Role Phone Ben Ramires Primary Care Provider [phone] REASON FOR VISIT Flu Vac Immunizations Vaccine Route Administration Date Status Comme nts Fluarix Quadrivalent - 150 IM Intramuscular 07/24/2024 Adm inistered Encounters Encounter Location Date Provider Diagnosis Ben Ramires MD [address] [place] [address] [place] [phone] 07/24/2024 Ben Ramires Encounter for immunization Z23 Assessments Encounter Date Diagnosis (ICD Code) Assessment Notes Treatment Notes Treatment Clinical Notes Section Notes 07/24/2024 Encounter for immunization (ICD-10 - Z23) Plan Of Treatment Next Appt Details Provider Name:Ben Resendiz ier, 07/16/2025 01:00:00 PM, [address] [place] [address], Suite [facility], [place], [place], [phone], Progress Notes * Amelie ROJASB:1970 ([age] yo F)Acc No.[id number]:07/24/2024 Progress Note Patient: Buffy MARIA Provider: Ximena Ramires MD :1970 A ge:54 Y S ex:Female Date:07/24/2024 Address:[address] [place], [place] [id number] Subjective: * Chief Complaints: * 1 . Flu Vac. * Medical History: Objective: * Vitals: Assessment: * Assessment: 1. E ncounter for immunization - Z23 (Primary) Plan: * Treatment: * Immunizations: Fluarix Quadrivalent - 150 : 0.5 mL (Dose No:1) (Route: Intramuscular) given by Soha Padilla , Office Staff on Left Deltoid * Procedure Codes: 9 0686 FLU VAC NO PRSV 4 PATI 3 YRS+, [address]9514 IMMUNIZATION ADMIN * * The named appointment provid er may or may not be the originator of this progress note, and it is not deemed complete until electronically signed by the appointment provider. Sign off status: Pending * Provider: Ximena Ramires MD Date: 0 07/24/2024 Generated for Isabelle hutchins/Mary/Carlositting on: 0 07/10/2025 12:32 PM EDT
--- OUTSIDE RECORDS SUMMARY | 2025-07-10 04:15 | XMS_ITS ---
Author Organization Ben Ramires MD Address [address] [place], [place] [id number] Care Team Providers Care Reset Merchandiser Name Role Phone Ben Ramires Primary Care Provider Results Component Value Reference Range Notes Complete Blood Count Auto Di ff (Not yet reviewed by provider) Interpretation: Performing Lab:[facility], [address] [place] [phone] Notes/Report: White Blood Count 5.0 4.8-10.8 X10*3/uL Red Blood Count 4.19 4.20-5.50 X10*6/uL Hemoglobin 12.6 12.0-16.0 g/dl Hematocrit 39.1 37.0-47.0 % Mean Corpuscular Volume 93.3 80.0-98.0 fL Mean Corpuscular Hemoglobin 30.1 27.0-33.0 pg Mean Corpuscular HGB Conc 32.2 31.0-35.0 g/dl Red Cell Distribution Width 13.4 11.0-16.0 % Platelet Count 203 160-400 X10*3/uL Mean Platelet Volume 12.6 9.4-12.3 fL Neutrophils Percent Auto 42.1 45-73 % Imm Gran Pct Auto 0.2 0.0-0.4 % Lymphocytes Percent Auto 42.2 20-40 % Monocytes Percent Auto 11.1 2-11 % Eosinophils Percent Auto 3.4 0-4 % Basophils Percent Auto 1.0 0-2 % NRBC Pct Auto 0.0 0.0-0.2 /100WBC Neutrophils Absolute Auto 2.1 2.0-8.3 x10*3/u L Imm Gran Abs Auto 0.01 0.00-0.03 X10*3/uL Lymphocytes Absolute Auto 2.1 1.2-4.9 X10*3/u L Monocytes Absolute Auto 0.6 0.1-1.2 X10*3/uL Eosinophils Absolute Auto 0.2 0.0-0.4 X10*3/u L Basophils Absolute Auto 0.1 0.0-0.2 X10*3/uL NRBC Abs Auto 0.000 0.0-0.012 X10*3/uL Comprehensive [place]. Panel Fa (Not yet reviewed by provider) Interpretation: Performing Lab:[facility], [address] [place] [phone] Notes/Report: Sodium 141 135-145 mmol/L Potassium 3.6 3.3-5.1 mmol/L Chloride 106 96-108 mmol/L Carbon Dioxide 28 22-29 mmol/L Anion Gap 11 12-20 Blood Urea Nitrogen 12 9-16 mg/dL Creatinine 0.82 0.5-1.4 mg/dL Estimated Glomerular Filt Rate > 60 Chronic Kidney Disease: Estimated GFR < 60 mL/min/1.73m2 Severe Kidney Disease: Estimated GFR < 15 mL/min/1.73m2 Glucose Fasting 81 60-99 mg/dL Calcium 8.7 8.4-10.2 mg/dL Bilirubin Total 0.6 0.0-1.0 mg/dL Aspartate Amino Transferase 24 5-31 U/L Alanine Aminotransferase 13 0-31 U/L Total Protein 6.6 6.5-8.0 g/dL Albumin Level 4.2 3.5-5.0 g/dL Alkaline Phosphatase 54 39-117 U/L Lipid Panel (Not yet reviewe d by provider) Interpretation: Performing Lab:[facility], [address] [place] [phone] Notes/Report: Triglycerides 49 <150 mg/dL Desirable Triglyceride: less than 150 mg/dL Borderline High Triglyceride 150-199 mg/dL High Triglyceride: 200-499 mg/dL Very High Triglyceride: greater than or equal to 5OO mg/dL Cholesterol 163 <200 mg/dL Desirable Cholesterol: less than 200 mg/dL Borderline High Cholesterol: 200-239 mg/dL High Cholesterol: greater than 239 mg/dL LDL Cholesterol Calculated 83 <100 mg/dL Desirable LDL: less than 100 mg/dL Near Optimal/Above Optimal LDL: 110-129 mg/dL Borderline High LDL: 130-159 mg/dL High LDL: 160-189 mg/dL Very High LDL: greater than or equal to 190 mg/dL HDL Cholesterol 71 >40 mg/dL Desirable HDL: greater than 40 mg/dL Note: This HDL assay may give artificially low results in patients with liver disease. UA ClnCatch+Micro w/rflx Cul t (Not yet reviewed by provider) Interpretation: Performing Lab:[facility], [address] [place] [phone] Notes/Report: Urine, Clean Catch Color Urine Yellow Appearance Urine Clear PH 7.0 5.0-9.0 Glucose Urine UA Negative Negative mg/dL Urine Blood Negative Negative Specific [place] - Urine 1.015 1.005-1.025 Urine Protein Negative Neg-Trace mg/dL Urine Ketones Negative Negative mg/dL Nitrite Urine Negative Negative Leukocyte Esterase Urine Negative Negative RBC Urine 0-2 0-2 /HPF WBC Urine 0-5 0-5 /HPF Squamous Epithelial Cell Urine 3-5 0-2 /HPF Bacteria Urine None Seen None Seen Hyaline Casts Urine 0-2 0-2 /LPF REASON FOR VISIT FASTING LABS Immunizations Vaccine Route Administration Date Status Comme nts Fluarix Quadrivalent - 150 IM Intramuscular 07/10/2025 Adm inistered Encounters Encounter Location Date Provider Diagnosis Ben Ramires MD [address] [place] [address] Drive [address] [place], [place] [phone] 07/10/2025 Ben Ramires Blood tests for routine general physical examination Z00.00 and Encounter for administration of vaccine Z23 Assessments Encounter Date Diagnosis (ICD Code) Assessment Notes Treatment Notes Treatment Clinical Notes Section Notes 07/10/2025 Blood tests for routine general physical examination (ICD-10 - Z00.00) 07/10/2025 Encounter for administration of vaccine (ICD-10 - Z23) Plan Of Treatment Pending Test Test Name Order Date Complete Blood Count Auto Diff 5 Comprehensive [place]. Panel Fast 5 Lipid Panel 07/10/2025 UA ClnCatch+Micro w/rflx Cult 07/10/2025 Next Appt Details Provider Name:Ben Resendiz ier, 07/16/2025 01:00:00 PM, [address] [facility], [address], [place], [place], [phone], Progress Notes * Louis ROJASaDOB:1970 ([age] yo F)Acc No.[id number]:07/10/2025 Progress Note Patient: Buffy MARIA Provider: Ximena Ramires MD :1970 A ge:55 Y S ex:Female Date:07/10/2025 Address:[address] [place], [place] [phone] Subjective: * Chief Complaints: * 1 . FASTING LABS. * Medical History: Objective: * Vitals: Assessment: * Assessment: 1. B lood tests for routine general physical examination - Z00.00 (Primary) 2 .?Encounter for administration of vaccine - Z23 Plan: * Treatment: * Immunizations: Fluarix Quadrivalent - 150 : 0.5 mL (Dose No:1) (Route: Intramuscular) given by Soha Padilla , Office Staff on Left Deltoid * Procedure Codes: 3 6415 VENIPUNCT, ROUTINE*, 45065 FLU VACCINE NO PRESERV 3 & >, 01495 IMMUNIZATION ADMIN * * The named appointment provid er may or may not be the originator of this progress note, and it is not deemed complete until electronically signed by the appointment provider. Sign off status: Pending * Provider: Ximena Ramires MD Date: 0 07/10/2025 Generated for Isabelle hutchins/Mary/eTransmitting on: 0 07/10/2025 12:32 PM EDT
[2025-07-10 11:43] LABS: MANUAL DIFF FLAG NO
[2025-07-10 11:48] LABS: Appearance Urine Clear; Glucose Urine UA Negative (Negative); PH 7.0 (5.0-9.0); Specific Gravity - Urine 1.015 (1.005-1.025)
[2025-07-10 11:52] LABS: Hematocrit 39.1 % (37.0-47.0); Hemoglobin 12.6 g/dl (12.0-16.0); Imm Gran Abs Auto 0.01 X10*3/uL (0.00-0.03); Imm Gran Pct Auto 0.2 % (0.0-0.4); Lymphocytes Absolute Auto 2.1 X10*3/uL (1.2-4.9); Mean Corpuscular HGB Conc 32.2 g/dl (31.0-35.0); Mean Corpuscular Hemoglobin 30.1 pg (27.0-33.0); Mean Corpuscular Volume 93.3 fL (80.0-98.0); NRBC Abs Auto 0.000 X10*3/uL (0.0-0.012); NRBC Pct Auto 0.0 /100WBC (0.0-0.2); Platelet Count 203 X10*3/uL (160-400); Red Blood Count 4.19 X10*6/uL (4.20-5.50); White Blood Count 5.0 X10*3/uL (4.8-10.8)
[2025-07-10 12:02] LABS: Alanine Aminotransferase 13 U/L (0-31); Albumin Level 4.2 g/dL (3.5-5.0); Alkaline Phosphatase 54 U/L (39-117); Anion Gap 11 (12-20); Aspartate Amino Transferase 24 U/L (5-31); Blood Urea Nitrogen 12 mg/dL (9-16); Calcium 8.7 mg/dL (8.4-10.2); Carbon Dioxide 28 mmol/L (22-29); Chloride 106 mmol/L (96-108); Cholesterol 163 mg/dL (<200); Estimated Glomerular Filt Rate > 60; HDL Cholesterol 71 mg/dL (>40); Potassium 3.6 mmol/L (3.3-5.1); Sodium 141 mmol/L (135-145); Total Protein 6.6 g/dL (6.5-8.0); Triglycerides 49 mg/dL (<150)
--- OUTSIDE RECORDS SUMMARY | 2025-07-10 12:32 | XMS_ITS | Clinical Summary ---
Author Organization [employer] [facility] Address [address] [place] [address] [address] [place] [address] Care Team Providers Care Warp Knitting Machine Operator Name Role Phone Unavailable Primary Care Provider Unavailabl e Allergies Active Allergy Reactions Criticality Noted Date Comments Cephalexin Rash Low 06/09/2013 Medications acetaminophen (Tylenol) 500 MG tablet Take 1 tablet (500 mg) by mouth every 6 (six) hours if needed for mild pain. 30 tablet Active Additional Information Patient not taking.Reported on 03/12/2025 ibuprofen 400 MG tablet Take 1 tablet (400 mg) by mouth every 6 (six) hours if needed for moderate pain. 30 tablet Active Additional Information Patient not taking.Reported on 03/12/2025 Active Problems Problem Noted Date Diagnosed Date Chronic dental pain 02/03/2025 Gingival recession, localized 01/31/2024 Dental calculus 01/23/2023 Social History Tobacco Use Types Packs/Day Years Used Date Smoking Tobacco: Never Passive Smoke Exposure: Never Smokeless Tobacco: Never Tobacco Cessation:Counseling Given: Not Answered Alcohol Use Standard Drinks/Week Comments Defer 0 (1 standard drink = 0.6 oz pur e alcohol) Comments Unknown Sex and Gender Information Value Date Recorded Sex Assigned at Female 09/04/2022 10:23 AM EDT Legal Sex Female 10:23 AM EDT Gender Identity Female 09/04/2022 10:23 AM EDT Sexual Orientation Straight 09/04/2022 10 :23 AM EDT Last Filed Vital Signs Vital Sign Reading Time Taken Comments Blood Pressure 100/64 03/12/2025 9:21 AM EDT Pulse 62 03/12/2025 9:21 AM EDT Temperature - - Respiratory Rate - - Oxygen Saturation - - Inhaled Oxygen Concentration - - Weight - - Height - - Body Mass Index - - Plan of Treatment Upcoming Encounters Date Type Department Care Team (Late st Contact Info) Description 08/11/2025 1:00 PM EDT Office Visit [facility] [address] [place] [address] Ora Webster [address] [place] [address] Health Maintenance Due Date Last Done Comments CT Colonography 1970 Colonoscopy 1971 Colorectal Cancer Screening 1971 Depression Screening 1970 FIT DNA/Cologuard 1971 FIT 1970 FOBT 1970 HIV Screening 1971 SDOH Screening 1971 Sigmoidoscopy 1971 Disability Screening 1971 Alcohol/Substance Use Screening 1983 Hepatitis C Screening 1989 DTaP/Tdap/Td Vaccines (1 - Tdap) 1990 Hepatitis B Vaccines (1 of 3 - 19+ 3-dose series) 1990 Pap Smear 1992 Cervical Cancer Screening 2001 HPV/Cotest 2001 Mammogram 2011 Pneumococcal Vaccine: 50+ Years (1 of 1 - PCV) 2021 Zoster Vaccines (1 of 2) 2021 COVID-19 Vaccine (1 - 2023-2 5 season) 2025 Influenza Vaccine (#1) 2025 Dental Oral Exam 08/07/2025 02/04/2025, 01/23/2023 Dental Prophylaxis 08/07/2025 02/04/2025, 01/23/2023 Dental X-Ray: Bitewings 02/05/2026 02/05/20 25, 01/23/2023 Tobacco Screening 03/12/2026 03/12/2025 Dental X-Ray: Full Mouth 02/05/2028 02/03/2025 RSV Patients and Patients Aged 60 years or older (1 - 1-dose 75+ series) 2046 HIB Vaccines Aged Out No longer eligi ble based on patient's age to complete this topic HPV Vaccines Aged Out No longer eligi ble based on patient's age to complete this topic Hepatitis A Vaccines Aged Out No long er eligible based on patient's age to complete this topic IPV Vaccines Aged Out No longer eligi ble based on patient's age to complete this topic Meningococcal B Vaccine Aged Out No l onger eligible based on patient's age to complete this topic Meningococcal Vaccine Aged Out No jarrett larisa eligible based on patient's age to complete this topic RSV under 20 months Aged Out No longe r eligible based on patient's age to complete this topic Rotavirus Vaccines Aged Out No longer eligible based on patient's age to complete this topic Procedures Procedure Name Priority Date/Time Associated Diagnosis Comments Full PROPHYLAXIS - ADULT Routine 025 2:00 PM EDT Dental calculus BITEWINGS - 4 RADIOGRAPHIC IMAGES Routine 02/04/2025 2:00 PM EDT Dental calculus PERIODIC ORAL EVALUATION - ESTABLISHED PATIENT Routine 02/04/2025 2:00 PM EDT PANORAMIC RADIOGRAPHIC IMAGE Routine 02/03/2025 1:00 PM EDT from Last 3 Months or Most Recently Relevant to Health Maintenance Insurance DENTAL - [facility]
--- OUTSIDE RECORDS SUMMARY | 2025-07-10 12:32 | XMS_ITS | Encounter Summary ---
Author Organization [facility] Address [address] [place] [address] [address] [place] [address] Care Team Providers Care Gas Regulator Repairer Name Role Phone Unavailable Primary Care Provider Unavailabl e Reason for Visit * Reason Onset Date Comments Appointment 02/03/2025 Encounter Details Date Type Department Care Team (Late st Contact Info) Description 02/03/2025 Telephone [facility] [address] [place] [address] Rm Martinez DDS [address] [place], [place] [phone] Appointment Social History Tobacco Use Types Packs/Day Years Used Date Smoking Tobacco: Never Passive Smoke Exposure: Never Smokeless Tobacco: Never Alcohol Use Standard Drinks/Week Comments Defer 0 (1 standard drink = 0.6 oz pur e alcohol) Comments Unknown Sex and Gender Information Value Date Recorded Sex Assigned at Female 09/04/2022 10:23 AM EDT Legal Sex Female 10:23 AM EDT Gender Identity Female 09/04/2022 10:23 AM EDT Sexual Orientation Straight 09/04/2022 10 :23 AM EDT documented as of this encounter Miscellaneous Notes * Telephone Encounter - Chris Hwang - 02/03/2025 9:14 AM EDT PT CARRIES [employer] FOR COVERAGE WE DO ACCEPT BCBS PARS SIDE STILL UNABLE TO POST INSURANCE CS documented in this encounter Plan of Treatment Upcoming Encounters Date Type Department Care Team (Late st Contact Info) Description 08/11/2025 1:00 PM EDT Office Visit [facility] [address] [place] [address] Ora Webster [address] [place] [address] documented as of this encounter Visit Diagnoses Not on filedocumented in this encounter
--- OUTSIDE RECORDS SUMMARY | 2025-07-10 12:32 | XMS_ITS | Encounter Summary ---
Author Organization [facility] Address [address] [facility] [address] [place] [address] Care Team Providers Care It Recruiter Name Role Phone Unavailable Primary Care Provider Unavailabl e Encounter Details Date Type Department Care Team (Latest Contact Info) Description 08/18/2020 Abstract [facility] CONVERSION[facility] Dental, Provider, DDS Social History Tobacco Use Types Packs/Day Years Used Date Smoking Tobacco: Never Assessed Comments Unknown Sex and Gender Information Value Date Recorded Sex Assigned at Female 09/04/2022 10:23 AM EDT Legal Sex Female 10:23 AM EDT Gender Identity Female 09/04/2022 10:23 AM EDT Sexual Orientation Straight 09/04/2022 10 :23 AM EDT documented as of this encounter Plan of Treatment Upcoming Encounters Date Type Department Care Team (Late st Contact Info) Description 08/11/2025 1:00 PM EDT Office Visit [facility] [address] [place] [address] Ora Webster [address] [place] [address] documented as of this encounter Visit Diagnoses Not on filedocumented in this encounter
--- OUTSIDE RECORDS SUMMARY | 2025-07-10 12:32 | XMS_ITS | Patient Health Record ---
Author Organization [facility] Address [address] [place] [phone] Care Team Providers Care Sales Agent Protective Service Name Role Phone Keyla RAO, Ben Primary Care Provider Felice Acevedo Jr, Da Unavailable Allergies Allergen (clinical drug ingredient) Drug/Non Drug Allergy documented on EMR Reaction Allergy Type Onset Date Status Keflex Unknown Drug Allergy Active Reason For Referral No Information Medications Medication SIG (Take, Route, Frequency, Duration) Notes Start Date End Date Status Valtrex 500 MG 1 tablet Orally Once a day as needed Active MiraLax (colon prep) 17 GM/SCOOP mixed with Gatorade or Crystal Light Orally begin at 5:00 p.m. the day before the procedure for 1 day 05/28/2024 Active Immunizations Vaccine Route Administration Date Status Comme nts Influenza Unknown 08/12/2018 Administered Influenza Unknown 09/25/2023 Administered Social History Tobacco Use: Social History Observation Description Date Details (start date - stop date) Never Smoker NA - NA Tobacco Use/Smoking Question Answer Notes Patient is a nonsmoker Alcohol Screen Question Answer Notes Did you have a drink contain ing alcohol in the past year? Yes How often did you have a dri nk containing alcohol in the past year? Monthly or less (1 point) How many drinks did you have on a typical day when you were drinking in the past year? 1 or 2 drinks (0 point) How often did you have 6 or more drinks on one occasion in the past year? Never (0 point) Points 1 Interpretation Negative Problems Problem Type SNOMED Code ICD Code Onset Dates Problem Status W/U Status Risk Notes Problem 312106120 Colon cancer screening (Z12.11) Active confirmed Problem 174516139 Encounter for other preprocedural examination (Z01.818) Active confirmed Problem 172855823 Family history o f colon cancer (Z80.0) Active confirmed Problem 055360161 LUQ pain (R10.12) Active confirmed Encounters Encounter Location Date Provider Diagnosis [facility] Outpatient [address] [place] [id number] 07/18/2024 Da Acevedo Jr Colon cancer screening Z12.11 and Family history of colon cancer Z80.0 Assessments Encounter Date Diagnosis (ICD Code) Assessment Notes Treatment Notes Treatment Clinical Notes Section Notes 07/18/2024 Colon cancer screening (ICD-10 - Z12.11) 07/18/2024 Family history of colon cancer (ICD-10 - Z80.0) Plan Of Treatment Future Test Test Name Order Date COLONOSCOPY 10/16/2018 COLONOSCOPY 05/28/2024 Insurance Providers Payer Name Payer Address Payer Phone Subscriber Number Group Number Insured Name Patient Relationship to Insured Coverage Start Date Coverage End Date [facility] [employer] [address] [place] [address] [id number] CASSIE MOTLEY Self - patient is the insured Medical (General) History Medical History History ICD Code HSV infection Colonoscopy 01/21, tubular adenoma, five- year followup Surgical History Surgery Date(Month/Year) appendectomy 1979
--- OUTSIDE RECORDS SUMMARY | 2025-07-10 12:32 | XMS_ITS | Patient Health Record ---
Author Organization Ben Ramires MD Address [address] [place], [place] [phone] Care Team Providers Care Sap Business Objects Consultant Name Role Phone Ben Ramires Primary Care Provider [phone] Allergies Allergen (clinical drug ingredient) Drug/Non Drug Allergy documented on EMR Reaction Allergy Type Onset Date Status Keflex rash Drug Allergy Active Results Component Value Reference Range Notes Complete Blood Count Auto Di ff (Not yet reviewed by provider) Interpretation: Performing Lab:[facility], [address] [place] [phone] Notes/Report: White Blood Count 5.0 4.8-10.8 X10*3/uL [...] NRBC Abs Auto 0.000 0.0-0.012 X10*3/uL Comprehensive [place]. Panel Fa (Not yet reviewed by provider) Interpretation: Performing Lab:[facility], [address] [place] [phone] Notes/Report: Sodium 141 135-145 mmol/L Potassium 3.6 [...] 54 39-117 U/L Lipid Panel (Not yet review ed by provider) Interpretation: Performing Lab:[facility], [address] [place] [phone] Notes/Report: Triglycerides 49 <150 mg/dL Desirable Triglyceride: [...] (Not yet reviewed by provider) Interpretation: Performing Lab:[facility], [address] [place] [phone] Notes/Report: Urine, Clean Catch Color Urine Yellow Appearance Urine Clear PH 7.0 5.0-9.0 Glucose Urine UA Negative Negative mg/dL Urine Blood Negative Negative Specific [place] - Urine 1.015 1.005-1.025 Urine Protein Negative Neg-Trace mg/dL Urine Ketones Negative Negative mg/dL Nitrite Urine Negative Negative Leukocyte Esterase Urine Negative Negative RBC Urine 0-2 0-2 /HPF WBC Urine 0-5 0-5 /HPF Squamous Epithelial Cell Urine 3-5 0-2 /HPF Bacteria Urine None Seen None Seen Hyaline Casts Urine 0-2 0-2 /LPF Reason For Referral No Information Medications Medication SIG (Take, Route, Fr equency, Duration) Notes Start Date End Date Status Valtrex 500 MG 1 tablet Orally Once a day for 10 day(s) Not-Taking Immunizations Vaccine Route Administration Date Status Comme nts Flu Vaccine IM Intramuscular 09/28/2014 Administered Fluarix Quadrivalent IM Intramuscular 10/10/2016 Administe red Fluarix Quadrivalent IM Intramuscular 09/03/2017 Administe red Fluarix Quadrivalent IM Intramuscular 08/27/2018 Administe red Fluarix Quadrivalent IM Intramuscular 08/25/2019 Administe red TDaP Unknown 05/21/2020 Administered Fluarix Quadrivalent IM Intramuscular 08/05/2020 Administe red SARS-COV-2 Moderna Unknown 01/18/2021 Administered SARS-COV-2 Moderna Unknown 02/15/2021 Administered Fluarix Quadrivalent IM Intramuscular 08/25/2021 Administe red Fluarix Quadrivalent - 150 IM Intramuscular 07/24/2024 Adm inistered Fluarix Quadrivalent - 150 IM Intramuscular 07/10/2025 Adm inistered Social History Tobacco Use: Social History Observation [...] Never (0 point) Points 2 Interpretation Negative Problems Problem Type SNOMED Code ICD Code Onset Dates Problem Status W/U Status Risk Notes Problem 439701310 Tubular adenoma (D36.9) Active confirmed Problem 619041322 Lumbar disc disease with radiculopathy (M51.16) Active confirmed Problem 654498867 Rosacea (L71.9) Active confirmed Problem [id number] 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) Active confirmed Problem 553662719824385 Perimenopause (N95.1) Active confirmed Procedures Procedure Date Ordered Date Performed Result Body Sit e Colonoscopy, Screening 07/18/2024 07/18/2024 N/A Encounters Encounter Location Date Provider Diagnosis Ben Ramires MD [address] [place] [id number] 07/24/2024 Ben Ramires Encounter for immunization Z23 Ben Ramires MD [address] [place] [address] Drive [address] [place] [id number] 07/10/2025 Ben Ramires Blood tests for routine general physical examination Z00.00 and Encounter for administration of vaccine Z23 Assessments Encounter Date Diagnosis (ICD Code) Assessment Notes Treatment Notes Treatment Clinical Notes Section Notes 07/24/2024 Encounter for immunization (ICD-10 - Z23) 07/10/2025 Blood tests for routine general physical examination (ICD-10 - Z00.00) 07/10/2025 Encounter for administration of vaccine (ICD-10 - Z23) Plan Of Treatment Pending Test Test Name Order Date Electrocardiogram (EKG) 04/26/2016 MAMMOGRAM DIGITAL BILATERAL SCREEN 04/26 Complete Blood Count Auto Diff 5 Comprehensive [place]. Panel Fast 5 Lipid Panel 07/10/2025 UA ClnCatch+Micro w/rflx Cult 07/10/2025 Next Appt Details Provider Name:Ben Resendiz ier, 07/16/2025 01:00:00 PM, [address] [facility], [address], [place], [place], [id number], Insurance Providers Payer Name Payer Address Payer Phone Subscriber Number Group Number Insured Name Patient Relationship to Insured Coverage Start Date Coverage End Date [employer] [address] [place], [place] [phone] [id number] Buffy Rojas Self - patient is the insured Medical (General) History Medical History History ICD Code father with colon cancer age 73 Colonoscopy done 01/17/19 - Arcelia Acevedo due to repeat in 2023.07/18/24 colonoscopy repeat 5y
--- OUTSIDE RECORDS SUMMARY | 2025-07-10 12:32 | XMS_ITS | Encounter Summary ---
Author Organization [facility] Address [address] [facility] [address] [place] [address] Care Team Providers Care Replenishment Specialist Name Role Phone Unavailable Primary Care Provider Unavailabl e Encounter Details Date Type Department Care Team (Latest Contact Info) Description 09/25/2019 Abstract [facility] CONVERSIONS Dental, Provider, DDS Social History Tobacco [...] Description 08/11/2025 1:00 PM EDT Office Visit [facility] [address] [place] [address] Ora Webster [address] [place] [address] documented as of this encounter Visit Diagnoses Not on filedocumented in this encounter
== END 2025-07-10 07:46 | disposition home or self-care (01) ==
LOC: HO.LNP 07:45
PROVIDERS: Visit Provider Internal Medicine
DX: Z00.00 Encounter for general adult medical examination without abnormal findings (principal); Z13.6 Encounter for screening for cardiovascular disorders; Z13.0 Encounter for screening for diseases of the blood and blood-forming organs and certain disorders involving the immune mechanism
CPT/HCPCS: 80053; 80061; 81001; 85025

== ENCOUNTER 2025-08-14 11:44 | Outpatient (REF) | payer BC, SELFPAY ==
[2025-08-14 11:48] LABS: MANUAL DIFF FLAG NO
[2025-08-14 11:58] LABS: Hematocrit 38.0 % (37.0-47.0); Hemoglobin 12.3 g/dl (12.0-16.0); Imm Gran Abs Auto 0.01 X10*3/uL (0.00-0.03); Imm Gran Pct Auto 0.2 % (0.0-0.4); Lymphocytes Absolute Auto 1.3 X10*3/uL (1.2-4.9); Mean Corpuscular HGB Conc 32.4 g/dl (31.0-35.0); Mean Corpuscular Hemoglobin 30.1 pg (27.0-33.0); Mean Corpuscular Volume 92.9 fL (80.0-98.0); NRBC Abs Auto 0.000 X10*3/uL (0.0-0.012); NRBC Pct Auto 0.0 /100WBC (0.0-0.2); Platelet Count 223 X10*3/uL (160-400); Red Blood Count 4.09 X10*6/uL (4.20-5.50); White Blood Count 4.6 X10*3/uL (4.8-10.8)
== END 2025-08-14 11:45 | disposition home or self-care (01) ==
LOC: HO.LNP 11:44
PROVIDERS: Visit Provider Internal Medicine
DX: Z00.00 Encounter for general adult medical examination without abnormal findings (principal)
CPT/HCPCS: 85025